=== PATIENT | male | born 1985 | race American Indian/Alaskan Native ===

== ENCOUNTER 2018-07-04 11:25 | Emergency (ER) | payer SELFPAY ==
[2018-07-04 12:13] VITALS: BP 176/79
== END 2018-07-04 12:43 | disposition left against medical advice (07) ==
LOC: ED 11:25
DX: S49.92XA Unspecified injury of left shoulder and upper arm, initial encounter (principal); Z53.21 Procedure and treatment not carried out due to patient leaving prior to being seen by health care provider; X58.XXXA Exposure to other specified factors, initial encounter; Y93.89 Activity, other specified; Y92.89 Other specified places as the place of occurrence of the external cause; Y99.8 Other external cause status